=== PATIENT | female | born 1985 | race Hispanic/Latino ===

== ENCOUNTER 2022-11-25 20:53 | Emergency (ER) | payer OTHER ==
[~2022-11-25] VITALS: Ht 154.9 cm; Wt 86.2 kg
[2022-11-25 21:09] VITALS: O2SAT 99
[2022-11-25] MEDS ORDERED: HYDROCODONE/APAP 5MG-325MG TAB ONE (21:44)
[2022-11-25] MEDS ORDERED: PREDNISONE 20 MG TAB ONE (21:44)
[2022-11-25] MEDS ORDERED: KETOROLAC TROMETHAMINE 30 MG/ML VIAL ONE (21:44)
[2022-11-25] MEDS ORDERED: PREDNISONE20 MG PO (21:58)
[2022-11-25] MEDS ORDERED: HYDROCODONE/APAP 5MG-325MG TAB PO ONE (22:00)
[2022-11-25] MEDS ORDERED: KETOROLAC TROMETHAMINE 60 MG/2 ML VIAL IM ONE (22:00)
[2022-11-25] MEDS ORDERED: PREDNISONE 20 MG TAB PO ONE (22:00)
[2022-11-25] MEDS ORDERED: ULTRAM 50MG50 MG PO (22:07)
== END 2022-11-25 22:35 | disposition home or self-care (01) ==
LOC: FSED 21:12
DX: S39.012A Strain of muscle, fascia and tendon of lower back, initial encounter (principal); X50.0XXA Overexertion from strenuous movement or load, initial encounter; Y92.89 Other specified places as the place of occurrence of the external cause
CPT/HCPCS: 99283; J1885; J7512